=== PATIENT | female | born 1965 | race Caucasian/White ===

== ENCOUNTER 2020-04-29 11:25 | Day surgery (SDC) | payer OTHER ==
[2020-04-28 13:07] VITALS: BMI 38.7
[2020-04-29] MEDS ORDERED: ROCURONIUM BROMIDE 50 MG/5 ML SYRINGE ONE (13:56)
[2020-04-29] MEDS ORDERED: PROPOFOL 20 ML ONE (13:56)
[2020-04-29] MEDS ORDERED: MIDAZOLAM HCL 2 MG/2 ML SINGLE DOSE VIAL ONE (13:56)
[2020-04-29] MEDS ORDERED: IBUPROFEN 800 MG/8 ML IJ IVPB PRN (15:14)
[2020-04-29] MEDS ORDERED: IBUPROFEN 600 MG TABLET (FP) PO PRN (15:14)
[2020-04-29] MEDS ORDERED: ONDANSETRON 4 MG/2 ML VIAL IVPUSH PRN ×2 (15:14→15:22)
[2020-04-29] MEDS ORDERED: oxyCODONE HCL 5 MG TABLET PO PRN ×2 (15:14→15:22)
[2020-04-29] MEDS ORDERED: ELECTROLYTE-148 SOLN 1,000 ML IV SCH (15:15)
--- NOTE | 2020-04-29 15:15 | HP ---
History & Physical Update - History History: No Change - Physical Physical: No Change - Assessment Assessment: No Change - Plan Plan: No Change (Consent signed and witnessed All questions answered)
--- NOTE | 2020-04-29 15:18 | OP ---
Operative Note - Note: Operative Date: 04/29/20 Pre-Operative Diagnosis: 54yo P1 with thick Endometrium Operation: Hysteroscopy, Polypectomy, D&C Findings: Slightly thickened Endometrium Posterior wall Joan polyp Post-Operative Diagnosis: Same as Pre-op Surgeon: Jenna Blandon Anesthesiologist/HAND CUTTER: Elvis Sahni Anesthesia: General Estimated Blood Loss (mls): 0 Drains & Tubes with Location: Fluid deficit - 150cc Drains, Volume Out (mls): 100 Fluid Volume Replaced (mls): 300 Operative Report Dictated: Yes
[2020-04-29] MEDS ORDERED: ACETAMINOPHEN 325 MG TABLET (FP) PO PRN (15:22)
[2020-04-29] MEDS ORDERED: ACETAMINOPHEN 1000 MG/100 ML VIAL (NON FORMULARY) IVPB ONE (15:26)
[2020-04-29] MEDS ORDERED: LACTATED RINGERS SOLUTION 1,000 ML IV SCH (15:30)
[2020-04-29 17:18] VITALS: BP 99/67; PULSE 85; TEMP 97.3
--- NOTE | 2020-05-01 08:50 | OP ---
DATE OF OPERATION: 04/29/2020 PREOPERATIVE DIAGNOSIS: A 54-year-old para 1 with thick endometrium. POSTOPERATIVE DIAGNOSIS: A 54-year-old para 1 with thick endometrium. OPERATION: Hysteroscopy, polypectomy, dilation and curettage. FINDINGS: Slightly thickened endometrium, posterior wall of the uterus sessile polyp. SURGEON: Ramya Blandon MD ANESTHESIOLOGIST: Tom Sahni MD ANESTHESIA: General. DESCRIPTION OF OPERATIVE PROCEDURE: After assuring informed consent, patient was brought to the operating room where she was placed in dorsal lithotomy position. Perineum and vagina were prepped and draped in sterile fashion. Chamberlain retractors were placed into the vagina and cervix was articulated with single-tooth tenaculum and gradually dilated in size with Nicolas dilators to accommodate 6.3-mm Symphion hysteroscope. The hysteroscope was introduced without any difficulty after it was primed and white balanced. The above findings were noted. The resectoscope piece was introduced through the hysteroscope and a polyp was removed and endometrium was dissected circumferentially. Curettage was performed with the resecting device. Excellent hemostasis was noted. All instruments were removed from uterus, cervix and vagina. Estimated blood loss was 0 mL. Patient received 300 mL of IV fluids, drained 100 mL of urine and at the end of the procedure 150 mL of fluid deficit was noted. Instrument and sponge count was correct x2. Patient tolerated the procedure well and was brought to the recovery room extubated. RAMYA BLANDON M.D. [id number]
--- NOTE | 2020-05-01 18:50 | PATH ---
Surgical Pathology Report Patient Name: CAROL LOUIS [facility]. Rec. #: [id number] /Age/Gender: 1965 (Age: 54) / F Account: [id number] Location: [facility] Taken: 04/29/2020 Received: 04/30/2020 Reported: 05/01/2020 Physicians: Jenna Blandon M.D. Specimen(s) Received ENDOMETRIAL CURETTINGS, POSSIBLE POLYP Clinical History Postmenopausal bleeding Final Diagnosis ENDOMETRIAL CURETTINGS, POSSIBLE POLYP, HYSTEROSCOPIC RESECTION, DILATION AND CURETTAGE: FRAGMENTS OF ENDOMETRIAL POLYP, FEW STRIPS OF ENDOMETRIAL GLANDS, AND FIBROMUSCULAR TISSUE CONSISTENT WITH SUBMUCOSAL LEIOMYOMA. Electronically Signed Marisol Cortez M.D. Gross Description Received in formalin labeled "endometrial curettings, possible polyp," is a 1.8 x 1.3 x 0.3 cm aggregate of jansen soft tissue fragments. The formalin is filtered and the specimen is entirely submitted in one cassette. /04/30/2020 [facility]/04/30/2020
== END 2020-04-29 17:15 | disposition home or self-care (01) ==
LOC: JASU-SURG 11:25
PROVIDERS: ATTEND Obstetrics & Gynecology
PROC: 0UJD8ZZ Inspection of Uterus and Cervix, Via Natural or Artificial Opening Endoscopic (ICD-10-PCS; 2020-04-29)
PROC: 0UB97ZX Excision of Uterus, Via Natural or Artificial Opening, Diagnostic (ICD-10-PCS; principal; 2020-04-29 13:00)
PROC: 0UDB7ZX Extraction of Endometrium, Via Natural or Artificial Opening, Diagnostic (ICD-10-PCS; 2020-04-29 13:00)
DX: N84.0 Polyp of corpus uteri (principal)
CPT/HCPCS: 86850; 86900; 86901; 88305-TC; 94760; J0131